=== PATIENT | female | born 1970 | race Caucasian/White ===

== ENCOUNTER 2024-06-03 12:59 | Emergency (ER) | payer OTHER, SELFPAY ==
[2024-06-03 13:35] VITALS: BP 143/71; PULSE 73; RESP 16; TEMP 36; O2SAT 93; BMI 31.6
--- NOTE | 2024-06-03 13:42 | ED_ITS ---
HPI - Abdominal Pain General Time Seen by Provider: 13:42 Date Seen: 06/03/24 Chief Complaint: Abdominal Pain Stated Complaint: abdominal pain, nausea Time Seen by Provider: 06/03/24 13:42 Source: patient and RN notes reviewed Mode of arrival: ambulatory Limitations: no limitations History of Present Illness HPI narrative: Claudine is a 53-year-old female with history of chronic pain, history of kidney stones, kidney cyst, spinal surgery who comes to the [facility] with for the 1st time for evaluation regarding abdominal pain and nausea and inability to eat for 5 days. Patient normally goes to the [facility] system. We will be requesting records. Claudine notes that on TuesdayMay 30 she had the onset of abdominal pain just the left of her belly button. This was associated with diarrhea that particular day. She also had nausea and was unable to eat. Over the past 5 days she continues to be unable to eat but has been able to take her daily oxycodone and that has stayed down. She has never actually had vomiting just persistent nausea. She is passing gas. She notes that initially it also was painful to urinate and she thought maybe she had a kidney infection. She did take azo for this. She notes that she also initially had a fever which finally broke this morning. She states that night her fever would go up quite a bit and then she would get really bad nightmares. Related Data Home Medications ?Medication ?Instructions ?Recorded ?Confirmed duloxetine 60 mg capsule,delayed 60 mg PO BID 06/03/24 06/03/24 release (Cymbalta) oxycodone 15 mg tablet 15 mg PO Q4H 06/03/24 06/03/24 oxycodone 15 mg tablet,crush 15 mg PO BID 06/03/24 06/03/24 resistant,extended release 12 hr (OxyContin) pregabalin 150 mg capsule (Lyrica) 150 mg PO BID 06/03/24 06/03/24 tinazitine 06/03/24 Previous Rx's ?Medication ?Instructions ?Recorded cefpodoxime 200 mg tablet 200 mg PO BID #14 tabs 06/03/24 Allergies Allergy/AdvReac Type Severity Reaction Status Date / Time latex Allergy Severe Verified 06/03/24 14:20 Review of Systems Status of ROS Reports: 10 or more systems reviewed and unremarkable except as noted in History and below Const Reports: fever, chills and fatigue ENMT Denies: nasal discharge Cardio Reports: palpitations; Denies: chest pain Resp Denies: cough GI Reports: abdominal pain, nausea and diarrhea; Denies: vomiting or blood in stool Reports: painful urination and urinary frequency Musculo Reports: back pain Integ/Breast Denies: rash Endo Reports: fatigue Exam Narrative: Exam Narrative: Alert and oriented. Very dramatic in retching. No vomitus. Eyes are clear. Face symmetrical. Speech is normal. Heart with a regular rate and rhythm. Lungs are clear bilaterally. Abdomen pending as patient suddenly had ?hot flash? and had to remove her blankets and was retching. Fortunately able to move all extremities during this event. Lower extremities without edema. Addendum-examination shows mild tenderness without rebound left lateral abdomen. No masses. Bowel sounds are present. No evidence of rash on back. Lidocaine patch in place. Const: Vital Signs, click to edit/add: Vital Signs - 24 hr 06/03/24 13:35 06/03/24 13:57 06/03/24 15:05 Temperature 96.8 F L Pulse Rate 68 83 Pulse Rate [Pulse Oximeter] 73 Respiratory Rate 16 Blood Pressure Blood Pressure [Le ft Upper Arm] 143/71 H Pulse Oximetry 93 95 96 Oxygen Delivery Me thod Room Air 06/03/24 15:06 06/03/24 16:39 Temperature Pulse Rate 76 Pulse Rate [Pulse Oximeter] 91 Respiratory Rate 20 16 Blood Pressure 154/70 H Blood Pressure [Le ft Upper Arm] 134/62 Pulse Oximetry 96 94 Oxygen Delivery Me thod Room Air Documenting provider has reviewed patient's vital signs: yes Course Course ED Course: Differential diagnosis includes but is not limited to gastroenteritis, pyelonephritis, bowel obstruction, diverticulitis. At this time will give Toradol 15 mg, Zofran 4 mg and 1 L of normal saline. Awaiting labs to include CBC, comprehensive panel, CRP, urinalysis. Given level of discomfort will also plan for abdominal CT with contrast. Reevaluation(s) Reevaluation #1: Patient returned from CT as she stated that she could not tolerate lying flat because of her nausea. She did receive Zofran 4 mg. Will give her Ativan 1 mg. Patient unable to tolerate CT and Ativan seems to markedly help her discomfort. Reevaluation #2: CT of the abdomen shows no evidence of diverticulitis, abscess, bowel obstruction. Does show cystitis. Currently awaiting urinalysis. Vital Signs Vital signs: Initial Vital Signs Temperature 96.8 F L 06/03/24 13:35 Temperature Source Temporal Artery Scan 06/03/24 13:35 Pulse Rate 73 06/03/24 13:35 Pulse Rhythm Regular 06/03/24 13:35 Pulse Strength 3+ Normal 06/03/24 13:35 Respiratory Rate 16 06/03/24 13:35 Blood Pressure 143/71 H 06/03/24 13:35 Blood Pressure Mean 95 06/03/24 13:35 Blood Pressure Position Sitting 06/03/24 13:35 Pulse Oximetry 93 06/03/24 13:35 Oxygen Delivery Method Room Air 06/03/24 13:35 Vital Signs Temperature 96.8 F L 06/03/24 13:35 Pulse Rate 73 06/03/24 13:35 Respiratory Rate 16 06/03/24 13:35 Blood Pressure 143/71 H 06/03/24 13:35 Pulse Oximetry 93 06/03/24 13:35 Oxygen Delivery Method Room Air 06/03/24 13:35 Temperature 96.8 F L 06/03/24 13:35 Pulse Rate 91 06/03/24 16:39 Respiratory Rate 16 06/03/24 16:39 Blood Pressure 134/62 06/03/24 16:39 Pulse Oximetry 94 06/03/24 16:39 Oxygen Delivery Method Room Air 06/03/24 16:39 Medications Administered Medications: Discontinued Medications Generic Name Dose Route Start Last Admin Trade Name Freq PRN Reason Stop Dose Admin Sodium Chloride 1,000 mls @ 1,000 mls/hr 06/03/24 13:57 06/03/24 16:03 0.9 % Sodium Chloride 1000 Ml IV 06/03/24 14:56 Infused .Q1H [facility] Infusion Ceftriaxone Sodium 1 gm/ 100 mls @ 200 mls/hr 06/03/24 16:28 06/03/24 17:15 Sodium Chloride IVPB 06/03/24 16:29 Infused ONCE ONE Infusion Sodium Chloride 1,000 mls @ 1,000 mls/hr 06/03/24 16:29 06/03/24 17:46 0.9 % Sodium Chloride 1000 Ml IV 06/03/24 17:28 Infused .Q1H [facility] Infusion Lorazepam 0.5 mg 06/03/24 14:37 06/03/24 14:43 Lorazepam 2 Mg/Ml Inj IVP 06/03/24 14:38 Not Given ONCE ONE Lorazepam 1 mg 06/03/24 14:42 06/03/24 14:44 Lorazepam 2 Mg/Ml Inj IVP 06/03/24 14:43 1 mg ONCE ONE Administration Ondansetron HCl 4 mg 06/03/24 13:56 06/03/24 14:29 Ondansetron 2 Mg/Ml Inj IVP 06/03/24 13:57 4 mg ONCE ONE Administration MDM - Abdominal Pain MDM Narrative Medical decision making narrative: 1. UTI-patient noted to be taking azo for the past 5 days given urinary symptoms. Urinalysis was positive. I suspect patient actually has early pyelonephritis even though CT results were reassuring given the location of her discomfort. Fortunately her white count and CRP are within normal limits as well as her lactate. At this time no signs of sepsis. Patient was given 1 g IV Rocephin while in the ED and will be continued on cefpoxidime 200 mg p.o. b.i.d. x7 days. This can be picked up at the pharmacy tomorrow. Will await the urine culture. Decided against the use of Cipro as patient is also requesting Zofran prescription and I would like to avoid to potentially QT prolonging compounds together. Of course, if she has resistant organism will need to re- evaluate that. 2. Abdominal pain-likely from early pyelonephritis. No evidence of abscess formation on CT. Note some biliary ductal dilatation on CT but patient has no right upper quadrant tenderness and has a history of cholecystectomy. Laboratory values including bilirubin and LFTs reassuring. 3. Chronic pain-does have oxycodone as needed for discomfort. 4. Dehydration with ketonuria-patient states she has not had anything to eat or drink in 5 days but was able to keep oxycodone down. No worries about withdrawal today. 2 L of normal saline given and patient does take p.o. while here without difficulty. Zofran 4 mg ODT p.o. q.8 hours p.r.n. 10. Given via [employer]. Recommend frequent small meals and staying well hydrated. 5. Disposition-home at this time. patient states she is feeling much better. Return/seek medical attention for worsening symptoms and as needed. Dictation done with voice recognition, and as a result, wrong word or [id number] substitutions may have occurred.? There may be errors in the script that have gone undetected.? Please consider this when interpreting information found in this chart. Medical Records Attestation: I reviewed the patient's medical records. Lab Data Attestation: I reviewed the patient's lab results. Labs: Lab Results 06/03/24 06/03/24 Range/Units 14:05 16:04 WBC 9.31 (4.50-11.00) K/uL RBC 5.00 (4.00-5.20) m/uL Hgb 14.7 (12.0-16.0) gm/dL Hct 43.6 (33.0-51.0) % MCV 87 (80-100) fL MCH 29 (26-34) pg MCHC 34 (32-36) gm/dL RDW Coeff of Сергей 13.2 (11.5-15.5) % Plt Count 219 (140-440) K/uL Neut % (Auto) 75.1 H (42.0-72.0) % Lymph % (Auto) 17.7 L (20-44) % [place] % (Auto) 6.0 (0.0-11.0) % Eos % (Auto) 0.5 (0.0-7.0) % Baso % (Auto) 0.6 (0.0-3.0) % Neut # (Auto) 7.00 (1.7-7.0) K/uL Lymph # (Auto) 1.60 (0.90-2.90) K/uL [place] # (Auto) 0.60 (0.00-0.90) K/UL Eos # (Auto) 0.05 (0.00-0.50) K/uL Baso # (Auto) 0.06 (0.00-0.30) K/uL Abs Immat Gran (auto) 0.01 (0.00-0.30) K/uL Imm/Tot Granulo (auto) 0.1 % Sodium 133 L (135-149) mmol/L Potassium 4.0 (3.6-5.1) mmol/L Chloride 102 (96-114) mmol/L Carbon Dioxide 19 L (20-32) mmol/L Anion Gap 12 (7-15) mEq/L BUN 24 (7-30) mg/dL Creatinine 0.8 (0.5-1.5) mg/dL Estimated Creat Clear 85.92 Estimated GFR 87 ml/min Glucose 89 (60-115) mg/dL Lactate 1.0 (0.5-1.9) mmol/L Calcium 9.7 (8.4-10.6) mg/dL Total Bilirubin 1.2 (0.1-1.5) mg/dL AST 37 H (12-35) U/L ALT 31 (4-35) U/L Alkaline Phosphatase 113 (40-150) U/L C-Reactive Protein 0.6 (0.5-1.0) mg/dL Total Protein 7.4 (6.0-8.3) g/dL Albumin 4.5 (3.3-5.0) g/dL Urine Color Yellow (Yellow) Urine Appearance Clear (Clear) Urine pH 5.5 (5.0-8.5) Ur Specific [place] 1.015 (1.000-1.030) Urine Protein Negative (Negative) Urine Glucose (UA) Negative (Negative) Urine Ketones 4+ A (Negative) Urine Blood Trace-intact A (Negative) Urine Nitrite Positive A (Negative) Urine Bilirubin 1+ A (Negative) Urine Urobilinogen 0.2 (0.2-1.0) Ur Leukocyte Esterase Negative (Negative) Urine RBC 2-5 A (0-2) Urine WBC 5-10 A (0-5) Ur Squamous Epith Cells Few (None-Few) Urine Bacteria Few A (None) Imaging Data CT scan - abdomen: Attestation: I have reviewed the pertinent imaging results. Radiologist's impression: Lung bases: Normal. Liver: Diffuse hepatic steatosis. No focal liver lesions seen. Patent hepatic vasculature. Gallbladder and bile ducts: Cholecystectomy. There is mild left more than right central intrahepatic biliary ductal dilatation. The common hepatic duct measures 1.2 centimeters at the hepatic hilum. The distal common bile duct measures about 0.9 centimeters. No calcified internal filling defect or extrinsic compression. Pancreatico biliary junction anatomy appears normal (series 4, image 73). Pancreas: Normal pancreas and pancreatic duct. Spleen: Small splenule. Normal spleen size and enhancement. Adrenal glands: Normal. Kidneys: Normal renal size and position. There is a 2.3 centimeter anteromedial left upper pole renal cyst. There is a smaller 0.7 centimeter left renal cyst. No solid renal mass. Contrast is already excreted into both collecting systems. No large calculi seen. No urinary tract dilation. Urinary bladder: Circumferential bladder wall thickening and hyperenhancement with mild adjacent inflammatory stranding. Pelvis: No cyst or mass. Vessels: Minimal atherosclerotic plaques. No aortic aneurysm. Normal mesenteric arteries and veins. Bowel: No dilated or inflamed bowel. Normal appendix. Moderate stool burden. Lymph nodes: No adenopathy. Peritoneum: No ascites or free air. Abdominal wall: Healed midline incision. No bowel containing hernia. Bones: Lower lumbar laminectomy. Lumbopelvic spinal fusion with multilevel pedicle screws and paired vertical rods. Anterior fusion at L4-5 and L5-S1. There is a spinal cord stimulator with the battery pack in the left buttock soft tissues. The leads enter the spine at the thoracolumbar junction and extend up into the lower thoracic spine with the electrodes at the T8 through T10 levels. There is some very mild wedging of T11 and T12 which may be physiologic. No findings of an acute fracture. No focal worrisome bone lesions. IMPRESSION: 1. Cystitis of the urinary bladder. No findings of upper tract infection or pyelonephritis. 2. Biliary ductal dilatation may be reservoir effect after cholecystectomy, p articularly in the absence of symptoms of biliary colic or obstruction/jaundice. Discharge Plan Discharge Clinical Impression: UTI (urinary tract infection) Patient Disposition: Home, Self-Care Condition: Improved Additional Instructions: Antibiotic for UTI sent to your pharmacy to be picked up tomorrow morning. He will be on that medication for 7 days. Please seek medical attention if you are not improving. If the culture comes back and the antibiotic is not appropriate we will call you in change it. Zofran as needed for nausea-this is in our [employer] meds machine. Push fluids including Pedialyte, Gatorade. Return as needed. Prescriptions: New cefpodoxime 200 mg tablet 200 mg PO BID Qty: 14 0RF Rx Instructions: must administer with a meal/food No Action oxycodone 15 mg tablet 15 mg PO Q4H oxycodone [OxyContin] 15 mg tablet,oral only,ext.rel.12 hr 15 mg PO BID pregabalin [Lyrica] 150 mg capsule 150 mg PO BID duloxetine [Cymbalta] 60 mg capsule,delayed release(DR/EC) 60 mg PO BID tinazitine Follow Up/Referrals: Provider,Not a Local [Primary Care Provider] - Stand Alone Forms: [employer] Info Instructions
--- NOTE | 2024-06-03 13:56 | CRLHL7_ITS ---
For Patients: As a result of the Century Cures Act, medical imaging exams and procedure reports are released immediately into your electronic medical record. You may view this report before your referring provider. If you have questions, please contact your health care provider. INDICATION: Pain with vomiting. COMPARISON: None. TECHNIQUE: CT of the abdomen and pelvis with intravenous contrast. Multiplanar axial, coronal, and sagittal reformats were reconstructed. Contrast: 108 mL Isovue 370. FINDINGS: Lung bases: Normal. Liver: Diffuse hepatic steatosis. No focal liver lesions seen. Patent hepatic vasculature. Gallbladder and bile ducts: Cholecystectomy. There is mild left more than right central intrahepatic biliary ductal dilatation. The common hepatic duct measures 1.2 centimeters at the hepatic hilum. The distal common bile duct measures about 0.9 centimeters. No calcified internal filling defect or extrinsic compression. Pancreatico biliary junction anatomy appears normal (series 4, image 73). Pancreas: Normal pancreas and pancreatic duct. Spleen: Small splenule. Normal spleen size and enhancement. Adrenal glands: Normal. Kidneys: Normal renal size and position. There is a 2.3 centimeter anteromedial left upper pole renal cyst. There is a smaller 0.7 centimeter left renal cyst. No solid renal mass. Contrast is already excreted into both collecting systems. No large calculi seen. No urinary tract dilation. Urinary bladder: Circumferential bladder wall thickening and hyperenhancement with mild adjacent inflammatory stranding. Pelvis: No cyst or mass. Vessels: Minimal atherosclerotic plaques. No aortic aneurysm. Normal mesenteric arteries and veins. Bowel: No dilated or inflamed bowel. Normal appendix. Moderate stool burden. Lymph nodes: No adenopathy. Peritoneum: No ascites or free air. Abdominal wall: Healed midline incision. No bowel containing hernia. Bones: Lower lumbar laminectomy. Lumbopelvic spinal fusion with multilevel pedicle screws and paired vertical rods. Anterior fusion at L4-5 and L5-S1. There is a spinal cord stimulator with the battery pack in the left buttock soft tissues. The leads enter the spine at the thoracolumbar junction and extend up into the lower thoracic spine with the electrodes at the T8 through T10 levels. There is some very mild wedging of T11 and T12 which may be physiologic. No findings of an acute fracture. No focal worrisome bone lesions. IMPRESSION: 1. Cystitis of the urinary bladder. No findings of upper tract infection or pyelonephritis. 2. Biliary ductal dilatation may be reservoir effect after cholecystectomy, particularly in the absence of symptoms of biliary colic or obstruction/jaundice. Please note that all CT scans at this facility use dose modulation, iterative reconstruction, and/or weight-based dosing when appropriate to reduce radiation dose to as low as reasonably achievable. Dictated by May Giron MD @ 06/03/2024 3:27:05 PM (Electronically Signed)
[2024-06-03 13:57] VITALS: PULSE 68; O2SAT 95
[2024-06-03 14:15] LABS: Basophils Absolute Auto 0.06 K/uL (0.00-0.30); Basophils Percent Auto 0.6 % (0.0-3.0); Eosinophils Absolute Auto 0.05 K/uL (0.00-0.50); Eosinophils Percent Auto 0.5 % (0.0-7.0); Hematocrit 43.6 % (33.0-51.0); Hemoglobin* 14.7 gm/dL (12.0-16.0); Immature Granulocytes Abs Auto 0.01 K/uL (0.00-0.30); Immature Granulocytes Pct Auto 0.1 %; Lymphocytes Percent Auto 17.7 % (20-44); Mean Corpuscular HGB Conc 34 gm/dL (32-36); Mean Corpuscular Hemoglobin 29 pg (26-34); Mean Corpuscular Volume 87 fL (80-100); Neutrophils Percent Auto 75.1 % (42.0-72.0); Platelet Count* 219 K/uL (140-440); RDW Coefficient of Variation % 13.2 % (11.5-15.5); White Blood Count* 9.31 K/uL (4.50-11.00)
[2024-06-03 14:16] LABS: Slide Review Reflex No
--- OUTSIDE RECORDS SUMMARY | 2024-06-03 14:18 | XMS_ITS | Clinical Summary ---
Author Organization [facility] Address [address] [place] [address]. [place] [address] Care Team Providers Care Employment Officer Name Role Phone No Ref-Primary, Physician Primary Care Provider Frida Mercado PA-C Unavailable Allergies Active Allergy Reactions Criticality Noted Date Comments Citronella Oil Shortness Of Breath High 10/07/2016 Escitalopram 11/28/2015 Other reaction(s): *Unknown Sexual side effects Hydrocodone Nausea and Vomiting 01/12/2016 Main ingredient in Vicodin - tolerates plain Acetaminophen Latex Rash Low 02/25/2012 Latex Hives,Rash Low 05/20/2015 Added based on information entered during log entry, please review and add reactions, type, and severity as needed Hydrocodone-Acetaminop hen 09/24/2013 nausea Medications multivitamin, therapeutic with minerals (MULTI-VITAMIN) TABS Take 1 tablet by mouth daily Active albuterol (VENTOLIN HFA) 108 (90 BASE) MCG/ACT Inhaler INHALE 1 TO 2 PUFFS PO Q 6 H PRN 7 Active aspirin-acetamino phen-caffeine (EXCEDRIN MIGRAINE) 250-250-65 MG tablet Take 1 tablet by mouth every 8 hours as needed 6 Active diclofenac (VOLTAREN) 1 % topical gel Apply topically daily as needed 9 Active SUMAtriptan (IMITREX) 100 MG tabletIndications :Migraine with aura and without status migrainosus, not intractable Take 1 tablet (100 mg) by mouth at onset of headache for migraine 27 tablet 9 Active hydrOXYzine (ATARAX) 10 MG tablet Take 1 tablet (10 mg) by mouth 2 times daily as needed for itching 9 Active DULoxetine HCl 30 MG CSDR Take 30 mg by mouth 2 times daily 1 capsule 9 Active tiZANidine (ZANAFLEX) 4 MG tablet Take 1 tablet (4 mg) by mouth 3 times daily 1 tablet 9 Active pregabalin (LYRICA) 150 MG capsule Take 1 capsule (150 mg) by mouth 2 times daily 1 capsule 9 Active SENNA PLUS 8.6-50 MG tablet Take 2 tablets by mouth daily as needed 0 Active ibuprofen (ADVIL/MOTRIN) 200 MG tabletIndications :Calculus of gallbladder without cholecystitis without obstruction Take 3 tablets (600 mg) by mouth every 6 hours as needed for pain 1 Active acetaminophen (TYLENOL) 500 MG tabletIndications :Calculus of gallbladder without cholecystitis without obstruction Take 2 tablets (1,000 mg) by mouth every 6 hours as needed for pain 1 Active naloxone (NARCAN) 4 MG/0.1ML nasal sprayIndications: Gallstones Ovid 1 spray (4 mg) into one nostril alternating nostrils daily as needed 0.2 mL 1 Active oxyCODONE (ROXICODONE) 5 MG tabletIndications :Acute post-operative pain Take 1 tablet (5 mg) by mouth every 4 hours as needed for pain 36 tablet 1 Active rosuvastatin (CRESTOR) 5 MG tabletIndications :Family history of ischemic heart disease,Chest pain, unspecified type,Palpitations ,SOB (shortness of breath) Take 1 tablet (5 mg) by mouth daily 90 tablet 3 1 Active dicyclomine (BENTYL) 20 MG tablet Take 1 tablet (20 mg) by mouth every 6 hours 24 tablet 4 Active omeprazole (PRILOSEC) [address] capsule Take 1 capsule (40 mg) by mouth daily 14 capsule 4 Active alum & mag hydroxide-simethi cone (MAALOX ES) 400-400-40 MG/5ML SUSP suspension Take 30 mLs by mouth every 6 hours as needed for indigestion or heartburn 355 mL 4 Active Active Problems Problem Noted Date Diagnosed Date Cervical post-laminectomy syndrome 07/22/2020 Degeneration of lumbar intervertebral disc 07/22 Ventral hernia without obstruction or gangrene 0 06/25/2020 Overview (06/25/2020): Added automatically from request for surgery [id number] Umbilical hernia without obstruction and without gangrene 06/25/2020 Overview (06/25/2020): Added automatically from request for surgery [id number] Gallstones 05/30/2020 Overview (05/30/2020): Added automatically from request for surgery [id number] Fibromyalgia 06/29/2019 Calculus of gallbladder with out cholecystitis without obstruction 06/29/2019 History of gastric ulcer 02/10/2019 History of Helicobacter pylori infection 019 Gastric ulcer 04/24/2018 Overview (05/02/2018): recommended repeat in 2 months Abnormal Pap smear of cervix 03/25/2018 Overview (07/05/2018): She reports cryosurgery, perhaps ~2002 2009 NIL pap (in Care Everywhere) 2018 NIL pap (in Care Everywhere) 2019 NIL pap, neg HR HPV. 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 CARDIOVASCULAR SCREENING; LDL GOAL LESS THAN 160 10/26/2017 Constipation, unspecified constipation type 10/15 Anxiety and depression 01/14/2017 Hypermobility of joint 01/14/2017 Urinary retention 01/14/2017 Obesity due to excess calories 10/12/2016 Opioid dependence, continuous 10/12/2016 Lumbar radiculopathy 10/07/2016 Major depressive disorder, recurrent episode, mo derate 09/19/2016 Anxiety 09/19/2016 Essential hypertension, benign 09/10/2016 Chronic bilateral low back pain without sciatica 09/10/2016 Chronic pain syndrome 09/10/2016 Pain medication agreement 07/13/2016 Overview (07/22/2020): Have agreed to 240 Tramadol/month with [employer]. Pt is checking to see if her insurance will pay for Toxassure before she signs agreement. Had gotten oxycodone from her orthopedist for recent neck surgery. Elevated factor VIII level 06/07/2016 High plasma histamine 06/07/2016 Severe episode of recurrent major depressive disorder, without psychotic features 09/05/2015 Factor V Leiden Resolved Problems Problem Noted Date Diagnosed Date Resolved Date Left ovarian cyst 07/02/2014 10/26/2017 Colitis 01/12/2014 07/02/2014 Back pain, acute 12/05/2013 07/02/2014 Dermoid cyst 09/22/2013 07/02/2014 Missed 02/25/2012 07/02/2014 Immunizations Name Administration Dates Next Due Rhogam 02/25/2012 Tdap (Adult) Unspecified Formulation 04/28/2017, 07/13/2007 Family History Medical History Relation Comments No Known Problems Brother 1 No Known Problems Brother 2 Coronary Artery Disease Father Other - See Comments Father carotid art bev dissection Ulcers Father Cancer - colorectal Maternal Grandfather Cerebrovascular Disease Mother Coronary Artery Disease Mother Gallbladder Disease Mother Hypertension Mother Pulmonary Embolism Mother Thyroid Disease Mother Cancer - colorectal Paternal Grandfather Osteoarthritis Sister 1 No Known Problems Sister 2 Relation Status Comments Brother 1 Alive Brother 2 Alive Father Alive Maternal Grandfather Mother Alive Paternal Grandfather Sister 1 Alive Sister 2 Alive Social History Tobacco Use Types Packs/Day Years Used Date Smoking Tobacco: Former Cigarettes 0.3 30 1 981 - 2010 Smokeless Tobacco: Never Quit: 03/24/2007 Tobacco Cessation:Counseling Given: Yes Comments:hardly smoked Alcohol Use Standard Drinks/Week Comments No 0 (1 standard drink = 0.6 oz pur e alcohol) PHQ-2 Answer Date Recorded PHQ-2 Score 6 05/27/2020 Adolescent Education Answer Date Record ed Getting School Help Needed Not on file 11/28 Comments No Sex and Gender Information Value Date Recorded Sex Assigned at Not on file Legal Sex Female 3:34 AM INSTRUCTOR OF EDUCATION Gender Identity Not on file Sexual Orientation Not on file Last Filed Vital Signs Vital Sign Reading Time Taken Comments Blood Pressure 153/80 11/03/2023 1:29 AM CDT Pulse 81 11/03/2023 2:26 AM CDT Temperature 36.7 C (98.1 F) 11/02/2023 10:16 PM CDT Respiratory Rate 13 11/03/2023 2:09 AM CDT Oxygen Saturation 94% 11/03/2023 2:26 AM CDT Inhaled Oxygen Concentration - - Weight 92.3 kg (203 lb 8 oz) 11/02/2023 10:16 PM CDT Height 177.8 cm (5' 10) 11/02/2023 10:16 PM CDT Body Mass Index 29.2 11/02/2023 10:16 PM CDT Plan of Treatment Health Maintenance Due Date Last Done Comments ANNUAL REVIEW OF HM ORDERS 1968 CT COLONOGRAPHY 1968 FLEX SIG 1968 sDNA (Cologuard) 1968 HIV SCREENING 11/22/1983 HEPATITIS C SCREENING 1986 HEPATITIS A IMMUNIZATION (1 of 2 - Risk 2-dose series) 11/22/1987 HEPATITIS B IMMUNIZATION (1 of 3 - 19+ 3-dose series) 11/22/1987 FIT 01/12/2015 01/12/2014 Pneumococcal Vaccine: 50+ Years (1 of 1 - PCV) 2018 ZOSTER IMMUNIZATION (1 of 2) 2018 YEARLY PREVENTIVE VISIT 03/24/2019 03/24/2018 PHQ-9 11/26/2020 05/27/2020, 05/06/2019, 02/09/2019, Additional history exists LIPID 12/30/2021 12/30/2020, /2 04/2020, 04/07/2018 COLONOSCOPY 04/25/2023 04/24/2018, 04/24/2018 COLORECTAL CANCER SCREENING 04/25/2023 HPV TEST 06/28/2023 06/27/2018 PAP 06/28/2023 06/27/2018, 02/15, 03/14/2017 MAMMO SCREENING 09/03/2023 09/02/2022, 08/15, 10/27/2020, Additional history exists COVID-19 Vaccine ( - season) 2023 INFLUENZA VACCINE (#1) 2023 BMP 11/01/2024 11/02/2023, 06/15, 05/27/2020, Additional history exists LUNG CANCER SCREENING 11/02/2024 11/03/2023, 024 ADVANCE CARE PLANNING 07/02/2025 07/02/2020, 021 DIABETES SCREENING 11/01/2026 11/02/2023, 0 07/06/2023, 05/27/2020, Additional history exists DTAP/TDAP/TD IMMUNIZATION (3 - Td or Tdap) 04/29/2027 04/28/2017, 07/13/2007 DEPRESSION ACTION PLAN Completed 10/20/2017, 2017 HPV IMMUNIZATION Aged Out No longer e ligible based on patient's age to complete this topic MENINGITIS IMMUNIZATION Aged Out No l onger eligible based on patient's age to complete this topic Medical Devices Implanted Type Area Legislative Director Device Identifier Shelf Expiration Date Model / Serial / Lot Bone Void Filler Stimulan 5cc Rapid Cure - 620-005 - Sna Implanted:Qty : 1 on 10/07/2016 Bone/Tissue Synthetic N/A: Spine Lumbar BI[employer]ES 04/14/2019 [id number] / NA / [id number]/02-[id number]/ [id number] Description:Posterior Graft Bone Infuse Medium [id number] - Sna Implanted:Qty : 1 on 10/07/2016 Bone/Tissue /Biologic N/A: Spine Lumbar [employer] 04/13/2018 [id number] / NA / [id number] Description:Anterior side Bone Chips Cancellous 30cc 1-8mm - [id number] - [id number] Implanted:Qty : 1 on 10/07/2016 Bone/Tissue /Biologic N/A: Spine Lumbar WICHO SP 05/23/2021 [id number] / [id number] / Description:Anterior side Bone Putty Dbx 5cc [id number] - [id number] Implanted:Qty : 1 on 10/07/2016 Bone/Tissue /Biologic N/A: Spine Lumbar SYNTHES 04/12/2018 [id number] / [id number] / Description:Anterior side Bone Chips Cancellous 30cc 1-4mm - [id number] - [id number] Implanted:Qty : 1 on 10/07/2016 Bone/Tissue /Biologic N/A: Spine Lumbar WICHO SP 05/27/2021 [id number] / [id number] / NA Mesh Ventralex Hernia 2.5 [place] Med W/Strap [id number] - [id number] Implanted:Qty : 1 on 07/10/2020 by Cassie Larsen MD at [facility] Mesh N/A: Umbilical CR BARD INC-DAVOL 02/10/2022 [id number] / / [id number] Screw Emily 3 Pa 7.5x40mm - [id number] - Sna Implanted:Qty : 2 on 10/07/2016 Metallic Hardware/An chor N/A: Spine Lumbar WICHO SP [id number] / NA / NA Description:posterior Screw Poly Ilios & Revision 8.5x60mm - [id number] - Sna Implanted:Qty : 2 on 10/07/2016 Metallic Hardware/An chor N/A: Spine Lumbar WICHO SP [id number] / NA / NA Description:posterior Zachariah Emily 3 Radius 2i418le - [id number] - Sna Implanted:Qty : 2 on 10/07/2016 Metallic Hardware/An chor N/A: Spine Lumbar WICHO SP [id number] / NA / NA Description:Posterior Wastewater Engineer Multifire Medium [id number] - Sna Implanted:Qty : 1 on 10/07/2016 Metallic Hardware/An chor N/A: Abdomen [employer]-ETHICON 07/14/2021 [id number] / NA / [id number] Ligaclip Large Aesculap [id number] - [id number] Implanted:Qty : 1 on 10/07/2016 Metallic Hardware/An chor N/A: Abdomen [employer] 11/13/2020 72315-7 / / [id number] Plate Locking [id number] - Sna Implanted:Qty : 2 on 10/07/2016 Metallic Hardware/An chor N/A: Spine Lumbar WICHO SP [id number] / NA / NA Description:Anterior Spacer Vertebral [id number] 12 Deg - [id number] - Sna Implanted:Qty : 2 on 10/07/2016 Metallic Hardware/An chor N/A: Spine Lumbar WICHO SP [id number] / NA / NA Description:Anterior Screw Bone 6x25mm - [id number] - Sna Implanted:Qty : 6 on 10/07/2016 Metallic Hardware/An chor N/A: Spine Lumbar WICHO SP [id number] / NA / NA Description:Anterior Oumar Zachariah Emily 3 - [id number] - Sna Implanted:Qty : 7 on 10/07/2016 Metallic Hardware/An chor N/A: Spine Lumbar WICHO SP [id number] / NA / NA Description:Posterior Screw Emily 3 Pa 6.5x45mm - [id number] - Sna Implanted:Qty : 3 on 10/07/2016 Metallic Hardware/An chor N/A: Spine Lumbar WICHO SP [id number] / NA / NA Description:posterior Disc Cervical Mobi-C [id number] - Sna Implanted:Qty : 1 on 01/12/2016 Total Joint Component/I nsert N/A: Spine Cervical LDR SPINE 12/16/2019 [id number] / NA / [id number] Description:Anterior Procedures Procedure Name Priority Date/Time Associated Diagnosis Comments CT CHEST PE ABDOMEN PELVIS W CONTRAST STAT 11/03/2023 1:24 AM CDT BASIC METABOLIC PANEL STAT 11/02/2023 10:31 PM CDT LIPID PROFILE Routine 12/30/2020 10:15 AM INSTRUCTOR OF EDUCATION Family history of ischemic heart disease Chest pain, unspecified type Palpitations SOB (shortness of breath) MA SCREENING BILATERAL W/ JUVE Routine 10/27/2020 1:37 PM CDT Encounter for screening mammogram for breast cancer PAP IMAGED THIN LAYER SCREEN Routine 06/27/2018 3:17 PM CDT Intramural leiomyoma of uterus HPV HIGH RISK TYPES DNA CERVICAL Routine 06/27/2018 3:05 PM CDT Intramural leiomyoma of uterus COLONOSCOPY - HIM SCAN 04/24/2018 12:00 AM CDT PHQ-9 DEPRESSION SCREENING ORDER Routine 12/27/2017 OCCULT BLOOD STOOL STAT 01/12/2014 8: 30 PM INSTRUCTOR OF EDUCATION Colitis from Last 3 Months or Most Recently Relevant to Health Maintenance Results * CT Chest (PE) Abdomen Pelvis w Contrast (11/03/2023 1:24 AM CDT) Anatomical Region Laterality Modality Chest, SUBRAD CT BODY, UMP CT CHEST, RAD CT Computed Tomography 11/03/2023 1:24 AM CDT Impressions 11/03/2023 1:48 AM CDT IMPRESSION: 1. No evidence of pulmonary embolism. 2. Mild diffuse urinary bladder wall thickening, could be due to underdistention versus chronic cystitis. 3. Moderate amount of stool in the colon, nonspecific, can be seen with constipation. 4. Fibroid uterus. Narrative 11/03/2023 1:48 AM CDT EXAM: CT CHEST PE ABDOMEN PELVIS W CONTRAST LOCATION: [facility] DATE: 11/03/2023 INDICATION: Chest pain, abdominal pain. COMPARISON: CT chest, abdomen and pelvis on 07/06/2023. TECHNIQUE: CT chest pulmonary angiogram and routine CT abdomen pelvis with IV contrast. Arterial phase through the chest and venous phase through the abdomen and pelvis. Multiplanar reformats and MIP reconstructions were performed. Dose reduction techniques were used. CONTRAST: 100 mL Isovue 370. FINDINGS: ANGIOGRAM CHEST: Pulmonary arteries are normal caliber and negative for pulmonary emboli. Thoracic aorta is negative for dissection. No CT evidence of right heart strain. MEDIASTINUM/AXILLAE: No cardiomegaly or significant pericardial effusion. No significant mediastinal, hilar or axillary lymphadenopathy. LUNGS AND PLEURA: No pleural effusion or pneumothorax. Mild basilar pulmonary opacities, likely atelectasis. CORONARY ARTERY CALCIFICATION: None. ABDOMEN/PELVIS: HEPATOBILIARY: No suspicious focal hepatic lesion. The gallbladder is surgically absent. Diffuse intrahepatic and extrahepatic biliary dilatation, likely reservoir effect post cholecystectomy. PANCREAS: No main pancreatic ductal dilatation or definite solid pancreatic mass. SPLEEN: No splenomegaly. Splenule along the inferior aspect of the spleen. ADRENAL GLANDS: No adrenal nodules. KIDNEYS/BLADDER: No radiodense kidney/ureteral stones or hydronephrosis in either kidney. 2 cm cyst at the upper pole of the left kidney. Few subcentimeter hypodense foci in the kidneys, too small to characterize. Mild diffuse urinary bladder wall thickening, could be due to underdistention versus chronic cystitis. BOWEL: No abnormally dilated bowel loops. The appendix is visualized and appears normal. Moderate amount of stool in the colon. PERITONEUM: No evidence of free fluid in the abdomen and pelvis. No free peritoneal or portal venous gas. PELVIC ORGANS: Fibroid uterus. VASCULATURE: Unremarkable. LYMPH NODES: Unremarkable. MUSCULOSKELETAL: Postsurgical changes of L4-S1 spinal fusion. There is left gluteal implantable spinal stimulator device. Procedure Note Maile Claros MD - 11/03/2023 EXAM: CT CHEST PE ABDOMEN PELVIS W CONTRAST LOCATION: [facility] DATE: 11/03/2023 INDICATION: Chest pain, abdominal pain. COMPARISON: CT chest, abdomen and pelvis on 07/06/2023. TECHNIQUE: CT chest pulmonary angiogram and routine CT abdomen pelvis withIV contrast. Arterial phase through the chest and venous phase through theabdomen and pelvis. Multiplanar reformats and MIP reconstructions wereperformed. Dose reduction techniques were used. CONTRAST: 100 mL Isovue 370. FINDINGS: ANGIOGRAM CHEST: Pulmonary arteries are normal caliber and negative forpulmonary emboli. Thoracic aorta is negative for dissection. No CTevidence of right heart strain. MEDIASTINUM/AXILLAE: No cardiomegaly or significant pericardial effusion.No significant mediastinal, hilar or axillary lymphadenopathy. LUNGS AND PLEURA: No pleural effusion or pneumothorax. Mild basilarpulmonary opacities, likely atelectasis. CORONARY ARTERY CALCIFICATION: None. ABDOMEN/PELVIS: HEPATOBILIARY: No suspicious focal hepatic lesion. The gallbladder issurgically absent. Diffuse intrahepatic and extrahepatic biliarydilatation, likely reservoir effect post cholecystectomy. PANCREAS: No main pancreatic ductal dilatation or definite solidpancreatic mass. SPLEEN: No splenomegaly. Splenule along the inferior aspect of thespleen. ADRENAL GLANDS: No adrenal nodules. KIDNEYS/BLADDER: No radiodense kidney/ureteral stones or hydronephrosis ineither kidney. 2 cm cyst at the upper pole of the left kidney. Fewsubcentimeter hypodense foci in the kidneys, too small to characterize.Mild diffuse urinary bladder wall thickening, could be due to underdistention versus chronic cystitis. BOWEL: No abnormally dilated bowel loops. The appendix is visualized andappears normal. Moderate amount of stool in the colon. PERITONEUM: No evidence of free fluid in the abdomen and pelvis. No freeperitoneal or portal venous gas. PELVIC ORGANS: Fibroid uterus. VASCULATURE: Unremarkable. LYMPH NODES: Unremarkable. MUSCULOSKELETAL: Postsurgical changes of L4-S1 spinal fusion. There isleft gluteal implantable spinal stimulator device. IMPRESSION: 1. No evidence of pulmonary embolism. 2. Mild diffuse urinary bladder wall thickening, could be due tounderdistention versus chronic cystitis. 3. Moderate amount of stool in the colon, nonspecific, can be seen withconstipation. 4. Fibroid uterus. Sandra Mayfield DO IMG CT ORDERABLES Final Re sult * (ABNORMAL) Basic metabolic panel (11/02/2023 10:31 PM CDT) Sodium 135 135 - 145 mmol/L 11/02/2023 11:21 PM CDT [facility] Potassium 3.8 3.4 - 5.3 mmol/L 11/02/2023 11:21 PM CDT [facility] Chloride 101 98 - 107 mmol/L 11/02/2023 11:21 PM CDT [facility] Carbon Dioxide (CO2) 22 22 - 29 mmol/L 11/02/2023 11:21 PM CDT [facility] Anion Gap 12 7 - 15 mmol/L 11/02/2023 11:21 PM CDT [facility] Urea Nitrogen 22.5(H) 6.0 - 20.0 mg/dL 11/02/2023 11:21 PM CDT [facility] Creatinine 0.96(H) 0.51 - 0.95 mg/dL 11/02/2023 11:21 PM CDT [facility] GFR Estimate 70 >60 mL/min/1.7 3m2 11/02/2023 11:21 PM CDT [facility] Comment:eGFR calculated usin g 2020 CKD-EPI equation. Calcium 9.7 8.8 - 10.4 mg/dL 11/02/2023 11:21 PM CDT [facility] Comment:Reference intervals for this test were updated on 08/30/2023 to reflect our healthy population more accurately. There may be differences in the flagging of prior results with similar values performed with this method. Those prior results can be interpreted in the context of the updated reference intervals. Glucose 129(H) 70 - 99 mg/dL 11/02/2023 11:21 PM CDT [facility] Blood BLOOD SPECIMEN / Unknown Venipuncture / Unknown 11/02/2023 10:31 PM CDT 11/02/2023 10:56 PM CDT Sandra Mayfield DO LAB - BLOOD ORDERABLES Fin al Result [facility] [address] Lab (1st floor, no room number) [place] [address], [facility] * (ABNORMAL) Lipid Profile (12/30/2020 10:15 AM INSTRUCTOR OF EDUCATION) [facility] Cholesterol 152 <200 mg/dL 12/30/2020 11:43 AM INSTRUCTOR OF EDUCATION LABORATORY Triglycerides 132 <150 mg/dL 12/30/2020 11:43 AM INSTRUCTOR OF EDUCATION LABORATORY Direct Measure HDL 44(L) >=50 mg/dL 2020 11:43 AM INSTRUCTOR OF EDUCATION LABORATORY LDL Cholesterol Calculated 82 <=100 mg/dL 12/30/2020 11:43 AM INSTRUCTOR OF EDUCATION LABORATORY Non HDL Cholesterol 108 <130 mg/dL 12/30/2020 11:43 AM INSTRUCTOR OF EDUCATION LABORATORY Patient Fasting > 8hrs? Yes 12/30/2020 11:43 AM INSTRUCTOR OF EDUCATION [facility] Blood STRUCTURE OF RIGHT UPPER LIMB / Unknown Venipuncture / Unknown 12/30/2020 10:15 AM INSTRUCTOR OF EDUCATION 12/30/2020 10:15 AM INSTRUCTOR OF EDUCATION Narrative LABORATORY - 12/30/2020 11:43 AM INSTRUCTOR OF EDUCATION Cholesterol Desirable: <200 mg/dL Triglycerides Normal: Less than 150 mg/dL Borderline High: 150-199 mg/dL High: 200-499 mg/dL Very High: Greater than or equal to 500 mg/dL Direct Measure HDL Female: Greater than or equal to 50 mg/dL Male: Greater than or equal to 40 mg/dL LDL Cholesterol Desirable: <100mg/dL Above Desirable: 100-129 mg/dL Borderline High: 130-159 mg/dL High: 160-189 mg/dL Very High: >= 190 mg/dL Non HDL Cholesterol Desirable: 130 mg/dL Above Desirable: 130-159 mg/dL Borderline High: 160-189 mg/dL High: 190-219 mg/dL Very High: Greater than or equal to 220 mg/dL Israel Perez MD LAB - BLOOD ORDERABLES Final Res ult LABORATORY [facility] [address] 1st floor, [address] [place] [id number], [facility] [phone] [facility] [address] [place] [address] * MA Screen Bilateral w/Juve (10/27/2020 1:37 PM CDT) Anatomical Region Laterality Modality Breast Bilateral Mammography Narrative 10/30/2020 10:30 AM CDT BILATERAL FULL FIELD DIGITAL SCREENING MAMMOGRAM WITH TOMOSYNTHESIS Performed on: 10/27/20 Compared to: 01/28/2017 and 06/25/2014 Technique: This study was evaluated with the assistance of Computer-Aided Detection. Breast Tomosynthesis was used in interpretation. Findings: The breasts have scattered areas of fibroglandular density. There is no radiographic evidence of malignancy. IMPRESSION: ACR BI-RADS Category 1: Negative RECOMMENDED FOLLOW-UP: Annual routine screening mammogram The results and recommendations of this examination will be communicated to the patient. Cassie Forbes PA-C IMG MAMMOGRAPHY ORDERABLES Final Result * Pap imaged thin layer screen with HPV - recommended age 30 - 65 years (select HPV order below) (06/27/2018 3:17 PM CDT) PAP TWILA Vasques Report Patient Name: AJIT ORTIZ MR#: [id number] Specimen #: [id number] Collected: 06/27/2018 Received: 06/28/2018 Reported: 06/29/2018 14:16 Ordering Phy(s): IRISH VILLAGOMEZ For improved result formatting, select 'View Enhanced Report Format' under Linked Documents section. SPECIMEN/STAIN PROCESS: Pap imaged thin layer prep screening (Surepath, FocalPoint with guided screening) Pap-Cyto x 1, HPV ordered x 1 SOURCE: Cervical, endocervical Pap imaged thin layer prep screening (Surepath, FocalPoint with guided screening) SPECIMEN ADEQUACY: Satisfactory for evaluation. -Transformation zone component present. CYTOLOGIC INTERPRETATION: Negative for intraepithelial lesion or malignancy Electronically signed out by: ADRIANA Giang (ASCP) CLINICAL HISTORY: LMP: 06/11/2018 Exam Note:: Pelvic Pain, Fibroids, Papanicolaou Test Limitations: Cervical cytology is a screening test with limited sensitivity; regular screening is critical for cancer prevention; Pap tests are primarily effective for the diagnosis/preventi on of squamous cell carcinoma, not adenocarcinomas or other cancers. COLLECTION SITE: Client: [facility] Location: [facility] () The technical component of this testing was completed at the [facility] [facility], with the professional component performed at the [facility], [address] [place] [id number] ([phone]) [facility] Cytologic material (specimen) 06/27/2018 3:17 PM CDT 06/28/2018 9:41 AM CDT Irish Villagomez MD LAB - OPTIME CLINICAL SPECIMEN Final Result COPATH * HPV High Risk Types DNA Cervical (06/27/2018 3:05 PM CDT) HPV Source SurePath 06/27/2018 3:18 PM CDT [facility] HPV 16 DNA Negative NEG^Nega tive 06/30/2018 3:[address] [facility] HPV 18 DNA Negative NEG^Nega tive 06/30/2018 3:[address] [facility] Other HR HPV Negative NEG^Nega tive 06/30/2018 3:[address] [facility] Final Diagnosis This patient's sample is negative for HPV DNA. 06/30/2018 3:[address] [facility] Comment: This test was developed and its performance characteristics determined by the [facility], Molecular Diagnostics Laboratory. It has not been cleared or approved by the FDA. The laboratory is regulated under CLIA as qualified to perform high-complexity testing. This test is used for clinical purposes. It should not be regarded as investigational or for research. (Note) METHODOLOGY: The Carlos Eduardo gita [id number] system uses automated extraction, simultaneous amplification of HPV (L1 region) and beta-globin, followed by real time detection of fluorescent labeled HPV and beta globin using specific oligonucleotide probes . The test specifically identifies types HPV 16 DNA and HPV 18 DNA while concurrently detecting the rest of the high risk types (31, 33, 35, 39, 45, 51, 52, 56, 58, 59, 66 or 68). COMMENTS: This test is not intended for use as a screening device for women under age 30 with normal cervical cytology. Results should be correlated with cytologic and histologic findings. Close clinical followup is recommended. Specimen Description Cervical Cells 06/27/2018 3:[address] [facility] Comment:[id number] Cervical Cells 06/27/2018 3: 05 PM CDT 06/27/2018 3:30 PM CDT us Irish Villagomez MD LAB - BLOOD ORDERABLES Final R esult Performing Organization Address City/State/[facility] Co de Phone Number [facility] [address] [place] [address] [place] [address] [address] [facility] [address] [place] [address] * COLONOSCOPY - HIM SCAN (04/24/2018 12:00 AM CDT) 04/24/2018 us Provider Outside PROCEDURES Final Result * PHQ-9 DEPRESSION SCREENING ORDER (12/27/2017) PHQ9 SCORE 25 Narrative Chelsea Lew - 12/27/2017 [facility] PROGRESS NOTE us Provider Outside OTHER Final Result * (ABNORMAL) Stool: occult blood (01/12/2014 8:30 PM INSTRUCTOR OF EDUCATION) Occult Blood Positive(A ) NEG [facility] Stool specimen (specimen) RECTUM STRUCTURE / Unknown 01/12/2014 8:30 PM INSTRUCTOR OF EDUCATION 01/12/2014 8:39 PM INSTRUCTOR OF EDUCATION Caitlyn Barros PA-C LAB - STOOLS ORDERABLES Final Result [facility] [address] [place], [place] [address] [phone] from Last 3 Months or Most Recently Relevant to Health Maintenance Insurance [employer] Advance Directives For more information, please contact: [phone] * Full Code (Latest Code Status on File) Date Activated Date Inactivated Comments 07/10/2020 3:56 PM 07/11/2020 2:51 PM All basic an d advanced life-sustaining interventions are performed as appropriate Question Answer Comments Code status determined by: Discussion with patie nt/ legal decision maker * Full Code Date Activated Date Inactivated Comments 01/12/2014 5:46 PM 01/16/2014 11:39 PM * Full Code Date Activated Date Inactivated Comments 12/06/2013 6:57 PM 12/08/2013 9:16 PM * Full Code Date Activated Date Inactivated Comments 12/05/2013 8:07 PM 12/06/2013 6:57 PM Care Teams Employment Officer Relationship Specialty Start Date End Date No Ref-Primary, Physician PCP - General 12/30/20 Frida Mercado PA-C [address] [address] Physician Insulation Technician Urology 07/08/23
--- OUTSIDE RECORDS SUMMARY | 2024-06-03 14:18 | XMS_ITS | Encounter Summary ---
Author Organization [place] Address [address] [place] [address]. [place] [address] Care Team Providers Care Electric Organ Assembler Name Role Phone Maru Bolton MD Primary Care Provider Unavailab Cassie Dietz MD Unavailable [phone] Cassie Forbes PA-C Unavailable [phone] Israel Perez MD Unavailable No Ref-Primary, Physician Primary Care Provider Frida Mercado PA-C Unavailable Encounter Details Date Type Department Care Team (Late st Contact Info) Description 07/25/2020 MyC Medical Advice [facility] [place] [address] [place] [address] Jaci Ruano PA-C [address] [facility] [address] [place] [address] Social History Tobacco Use Types Packs/Day Years Used Date Smoking Tobacco: Former Cigarettes 0.3 30 1 981 - 2010 Smokeless Tobacco: Never Quit: 03/24/2007 Comments:hardly smoked Alcohol Use Standard Drinks/Week Comments No 0 (1 standard drink = 0.6 oz pur e alcohol) PHQ-2 Answer Date Recorded PHQ-2 Score 6 05/27/2020 Comments No Sex and Gender Information Value Date Recorded Sex Assigned at Not on file Legal Sex Female 3:34 AM ROUSTABOUT HAND Gender Identity Not on file Sexual Orientation Not on file COVID-19 Exposure Response Date Recorded In the last month, have you been in contact with someone who was confirmed or suspected to have Coronavirus / COVID-19? No / Unsure 07/10/2020 8:58 AM CDT documented as of this encounter Plan of Treatment Not on file documented as of this encounter Visit Diagnoses Not on filedocumented in this encounter Additional Health Concerns Infection Onset Date Last Indicated Resolved Time Rule Out COVID-19 11/02/2023 11/02/2023 11/03/2023 12:14 AM CDT Assessment Noted Time PHQ-9 Depression Total Score: 021 10:00 AM CDT documented as of this encounter Care Teams Electric Organ Assembler Relationship Specialty Start Date End Date Maru Bolton MD PCP - General Family Practice 10/20/17 12/29/20 No Ref-Primary, Physician PCP - General 12/30/20 Cassie Larsen MD SURGICAL CONSULTS, JOANIE [facility] [address] [place] [address] Assigned Surgical Provider 06/08/20 02/05/22 Cassie Forbes PA-C [address] [place] [address] Assigned PCP 07/10/20 08/06/23 Israel Perez MD [address] [place] [address] Assigned Heart and Vascular Provider 08/03/20 07/02/22 Frida Mercado PA-C [address] [place] [address] Physician Maintenance Helper Utility Engineer Urology 07/08/23 documented as of this encounter
--- OUTSIDE RECORDS SUMMARY | 2024-06-03 14:19 | XMS_ITS | Encounter Summary ---
Author Organization [employer] Address [address] [place] [address]. [place] [address] Care Team Providers Care Foundation Assistant Name Role Phone Maru Bolton MD Primary Care Provider Unavailab Maru Coker MD Unavailable Unavailable Jessica Villagomez MD Unavailable [phone] Cassie Larsen MD Unavailable [phone] Cassie Forbes PA-C Unavailable [phone] Israel Perez MD Unavailable No Ref-Primary, Physician Primary Care Provider Frida Mercado PA-C Unavailable [phone] Encounter Details Date Type Department Care Team (Latest Contact Info) Description 06/29/2019 Historic Results Social History Tobacco Use Types Packs/Day Years Used Date Smoking Tobacco: Former Cigarettes 0.3 30 Smokeless Tobacco: Former Quit: 03/24/2007 Comments:hardly smoked Alcohol Use Standard Drinks/Week Comments No 0 (1 standard drink = 0.6 oz pur e alcohol) PHQ-2 Answer Date Recorded PHQ-2 Score 6 02/21/2018 Comments No Sex and Gender Information Value Date Recorded Sex Assigned at Not on file Legal Sex Female 3:34 AM LEADERSHIP DEVELOPMENT CONSULTANT Gender Identity Not on file Sexual Orientation Not on file documented as of this encounter Plan of Treatment Not on file documented as of this encounter Visit Diagnoses Not on filedocumented in this encounter Additional Health Concerns Infection Onset Date Last Indicated Resolved Time Rule Out COVID-19 11/02/2023 11/02/2023 11/03/2023 12:14 AM CDT Assessment Noted Time PHQ-9 Depression Total Score: 24 020 2:23 PM CDT documented as of this encounter Care Teams Foundation Assistant Relationship Specialty Start Date End Date Maru Bolton MD PCP - General Family Practice 10/20/17 12/29/20 No Ref-Primary, Physician PCP - General 12/30/20 Maru Bolton MD Assigned PCP 10/30/17 07/09/20 Jessica Villagomez MD [address] [place], [place] [address] Assigned OBGYN Provider 12/07/1912/28 Cassie Larsen MD SURGICAL CONSULTS, [facility] [address] [employer] [facility] [address] [place], [place] [address] Assigned Surgical Provider 06/08/20 02/05/22 Cassie Forbes PA-C [address] [place] [address] Assigned PCP 07/10/20 08/06/23 Israel Perez MD [address] [place], [place] [address] Assigned Heart and Vascular Provider 08/03/20 07/02/22 Frida Mercado PA-C [address] [place] [address] Physician Dental Floss Packer Urology 07/08/23 documented as of this encounter
--- OUTSIDE RECORDS SUMMARY | 2024-06-03 14:19 | XMS_ITS | Clinical Summary ---
Author Organization [employer] Address [address], [place] [address] Care Team Providers Care Food Safety Field Specialist Name Role Phone Unavailable Primary Care Provider Unavailabl e Source Comments You are receiving this document as you are listed as the primary care provider,follow-up provider, or the patient has been referred to you for consultation.This is in compliance with the Medicare and[facility] EHR Incentive Program,which states Providers who transition their patient to another setting of careor provider of care or refers their patient to another provider of care shouldprovide summary care record for each transition of care or referral. [employer] Allergies Active Allergy Reactions Criticality Noted Date Comments Latex Rash 05/12/2016 Medications VENTOLIN HFA 108 (90 BASE) MCG/ACT inhaler INHALE 1 TO 2 PUFFS PO Q 6 H PRN 0 05/08/2016 Active pregabalin (LYRICA) 50 MG capsule Take 150 mg by mouth two times a day. Active traMADol (ULTRAM) 50 MG tablet Take 50 mg by mouth every 6 hours as needed for Pain. Active oxyCODONE (ROXICODONE) 5 MG immediate release tablet Take 5 mg by mouth every 4 hours as needed for Pain. Active diclofenac (VOLTAREN) 1 % gel Apply 1 g to skin daily. 07/01/2017 Active hydrOXYzine pamoate (VISTARIL) 25 MG capsule Take 25 mg by mouth daily. 05/31/2017 Active tiZANidine (ZANAFLEX) 4 MG tablet Take 4 mg by mouth daily. 05/31/2017 Active OXYCONTIN 20 MG 12 hour release tablet 06/09/2017 Active oxyCODONE (ROXICODONE) 15 MG immediate release tablet 07/05/2017 Acti ve mupirocin calcium (BACTROBAN) 2 % cream 04/26/2017 Active LYRICA 150 MG capsule 06/01/2017 Active Cromolyn Sodium (GASTROCROM) 100 MG/5ML solutionIndicati ons:Ulcerative colitis with complication, unspecified location (HRC),Abdominal pain, generalized,High plasma histamine Take 5-10 mL by mouth 4 times daily before meals and at bedtime. 3600 mL 4 08/10/2017 Active DULoxetine (CYMBALTA) 20 MG capsuleIndicatio ns:Depression with anxiety (HRC),Chronic pain syndrome Take 2 Caps by mouth daily. 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 Luis F Parkinson [facility] [address], [place] [address] - [address] Karla Olivas [facility] [address] [facility] [facility] [facility] [place] [address] Psychiatrist - someone in [place], patient did not like her. Home Medical Services Pharmacy Name: N/A Address: N/A Phone #: N/A Infusion [employer]: N/A Address: N/A Phone #: N/A Line Type: Other: N/A Medication: Name: N/A Dose/Volume: N/A Infusion Time: N/A Frequency: N/A Functional Ability Self Care (bathing, toilet, dressing, moving, eating): frequent assistance, seat riser for shower, has to put on socks and shoes some days. When she wakes up, feels like feet are being smashed. Got sick last week and didn't eat for several days, lots of pain was relieved. Dxed with fibromyalgia, but doesn't believe this really accounts for joint pain. Family and social ability (chores, hobbies, driving,sex,social) : Unable. Doesn't make social plans because she doesn't know how she'll feel each day. Even a trip to the grocery store can put her out for several days. Doctors say she has old knees. Drove up to [place] to buy shoes thru [employer] person told her she sounds like she has EDS, asked to text her this info, learned about Dr. Hackett. Has to wear house shoes all the time to help with plantar fasciitis. Sometimes forgets to put on shoes when she comes in the house, pain is enough to drop her to her knees. Get up and go: walk short distances (1 - 6 blocks) independently and climb 1 flight of steps. Sometimes only gets 5 houses when walking dog before pain is too much. Walks a block to the grocery store, but then has to take time to recover. Split- level house - goes upstairs when she gets home, doesn't go downstairs again. Going down stairs is equally painful, especially in knees. Lift: Can lift 5lbs. Gallon of milk is too heavy. 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 Knee problems started, surgeries, now unable to go back to work. Fell down stairs in February 2012 when she missed a step, broke foot. Fell outside and hurt knee just standing and talking to a neighbor. No flowsheet data found. Medical Equipment/DME: Vendor: [employer] Inspector: N/A Address: N/A Phone #: N/A Mobility devices: a cane, a 4-wheeled walker, a manual wheelchair. Doesn't use these often. TENS device for neck and shoulder, which helps. Assistive Technology Name: N/A Address: N/A Phone #: N/A Device: Knee brace and Other: back brace, orthotics when not wearing [employer] Handicapped Parking? No but would like one. Completed by: N/A Driving modifications: N/A Hasn't driven much in the past four months because of neck pain and medication. Home Care/Home Health Aid/MANAGER FINANCIAL Services: Agency: N/A [employer]: N/A Address: N/A Phone #: N/A Social Supports Spouse/partner and dog, one girlfriend who is really good, another friend who lives up in [place], which is too far. Lots of people don't really understand the severity of pain. Patient doesn't tell many people about medical issues - wants to wait until she has answers. Living [facility] with spouse Financial Needs Work Sponsored Plan [facility] through 's work - $200 individual deductible. RN reviewed medications?: No Patient has always had joint issues - but just worked through it. Had issues with hips since childhood - always been careful about dislocating. Hip slipped out of place one day while stretching buttocks. Dealt with depression off and on - stress is tough on her. Worked 60-80 hours a week, always had 2-3 jobs. Three surgeries on back in 2004. 2008 - slipped on floor at salon, hit head, had to get disc replaced. First miscarriage in February 2010, then 2011 and 2012. Things went downhill after that. Non-stop doctor's visits, surgeries, pain the last four years. 10 surgeries in 3 years. Fibromyalgia diagnosis didn't feel conclusive, Lyrica has helped with FM pain. Both sisters have joint issues, issues with skin swelling after abrasion. 3 cyst surgeries, hernia surgery. 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 Cut soy out of diet, now working it back in. Used to be a go-getter, but has had to cancel all social and work obligations because she can't commit to anything. Used to make jewelry, shop a lot - now watches movies at home, goes to movies, boating, anything that doesn't involve lots of walking. Afraid to tell people about not feeling well because Dad and sister will ridicule her. 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 Immunizations Immunization Administration Dates Next Due Tdap 07/13/2007 Family History Medical History Relation Name Comments Bipolar Disorder Father Coronary Artery Disease Father Hyperlipidemia Father Cataract Mother Depression Mother Glaucoma Mother Hypertension Mother Inflammatory Bowel Disease Mother Migraines Mother Obesity Mother Alcohol Abuse Brother 1 Bipolar Disorder Brother 1 Drug Abuse Brother 1 Eczema Brother 1 Scoliosis Maternal Aunt Cancer, Colon Maternal Grandfather Eczema Maternal Grandfather Cancer, Colon Maternal Grandmother Cataract Maternal Grandmother Inflammatory Bowel Disease Sister 1 Migraines Sister 1 Relation Name Status Comments Father Alive Mother Alive Brother 1 Alive Brother 2 Alive Maternal Aunt Maternal Grandfather (Age 50) Co agueda Cancer Maternal Grandmother (Age 92) He art Complications Paternal Grandfather (Age 80) Co agueda Cancer Paternal Grandmother (Age 30) La bor and Delivery Sister 1 Alive Sister 2 Alive Social History Tobacco Use Types Packs/Day Years Used Date Smoking Tobacco: Former Smokeless Tobacco: Never Alcohol Use Standard Drinks/Week Comments No 0 (1 standard drink = 0.6 oz pur e alcohol) Comments No Sex and Gender Information Value Date Recorded Sex Assigned at Not on file Legal Sex Female 1:31 PM SHERIFF'S SERGEANT Gender Identity Not on file Sexual Orientation Not on file Last Filed Vital Signs Vital Sign Reading Time Taken Comments Blood Pressure 136/97 07/07/2017 4:49 PM CDT Pulse 84 07/07/2017 4:49 PM CDT Temperature 37 C (98.6 F) 07/07/2017 4:40 PM CDT Respiratory Rate 24 05/12/2016 11:22 AM CDT Oxygen Saturation - - Inhaled Oxygen Concentration - - Weight 108.4 kg (239 lb) 05/12/2016 11:22 AM CDT Height 175.3 cm (5' 9) 05/12/2016 11:22 AM CDT Body Mass Index 35.29 05/12/2016 11:22 AM CDT Plan of Treatment Health Maintenance Due Date Last Done Comments Cervical Cancer Screening Due 1968 Colon Cancer Screening Plan Due 1968 Hep C Screening (Preventive Services) 1968 Mammogram 1968 HIV Screening (Preventive Services) 1984 Adult Preventive Visit 1986 HepB Vaccine (1) 11/22/1987 Cholesterol 2013 Pneumococcal Vaccine 50+ Yrs (1 of 1 - PCV) 2018 Zoster/Shingles Vaccine (1 o f 2) 2018 COVID-19 Vaccine (1 - 2023-2 5 season) 2023 Influenza Vaccine (#1) 2023 DTaP/Tdap/Td Vaccine (3 - Tdap) 04/29/2027 04/28/2017, 07/13/2007 HepA Vaccine Aged Out No longer eligi ble based on patient's age to complete this topic Hib Vaccine Aged Out No longer eligi ble based on patient's age to complete this topic IPV (Polio) Vaccine Aged Out No longe r eligible based on patient's age to complete this topic MCV4 Vaccine Aged Out No longer eligi ble based on patient's age to complete this topic Meningococcal B Vaccine Aged Out No l onger eligible based on patient's age to complete this topic Insurance [facility]
--- OUTSIDE RECORDS SUMMARY | 2024-06-03 14:19 | XMS_ITS | Encounter Summary ---
Author Organization [place] Address [address] [place] [address]. [place] [address] Care Team Providers Care Venereal Disease Control Head Name Role Phone Maru Bolton MD Primary Care Provider Unavailab Maru Coker MD Unavailable Unavailable Maru Bolton MD Unavailable Unavailable Jessica Villagomez MD Unavailable [phone] Cassie Larsen MD Unavailable [phone] Cassie Forbes PA-C Unavailable [phone] Israel Perez MD Unavailable No Ref-Primary, Physician Primary Care Provider Frida Mercado PA-C Unavailable Reason for Visit * Reason Onset Date Comments Refill Request 01/04/2018 Encounter Details Date Type Department Care Team (Late st Contact Info) Description 01/04/[address] [address] Maru Bolton MD Refill Request Social History Tobacco Use Types Packs/Day Years Used Date Smoking Tobacco: Former Smokeless Tobacco: Never Alcohol Use Standard Drinks/Week Comments No 0 (1 standard drink = 0.6 oz pur e alcohol) Comments No Sex and Gender Information Value Date Recorded Sex Assigned at Not on file Legal Sex Female 3:34 AM LABORER TIN CAN Gender Identity Not on file Sexual Orientation Not on file documented as of this encounter Miscellaneous Notes * Telephone Encounter - Paula Ontiveros PA-C - 01/04/2018 4:22 PM LABORER TIN CAN Signed in PCP absence. Paula Ontiveros PA-C RER TIN CAN * Telephone Encounter - Elana Phipps RN - 01/04/2018 3:59 PM CST Routing refill request to provider and POD for review/approval because: Failed Blood Pressure Last Written Prescription Date: 10/20/17 Last Fill Quantity: 27, # refills: 0 Last office visit: 12/13/2017 with prescribing provider: Jeannette Bolton for pre-op Future Office Visit: Notes per NOEL 10/20/17: Migraine with aura and without status migrainosus, not intractable: Refilling: - SUMAtriptan (IMITREX) 100 MG tablet; Take 1 tablet (100 mg) by mouth at onset of headache for migraine Return in about 2 months (around 12/20/17) Requested Prescriptions Pending Prescriptions Disp Refills ??? SUMAtriptan (IMITREX) 100 MG tablet 27 tablet 0 Sig: Take 1 tablet (100 mg) by mouth at onset of headache for migraine Serotonin Agonists Failed 01/04/2018 4:07 PM Failed - Blood pressure under 140/90 in past 12 months BP Readings from Last 3 Encounters: 01/04/18 149/88 12/13/17 122/70 10/20/17 138/82 Failed - Serotonin Agonist request needs review. Please review patient's record. If patient has had 8 or more treatments in the past month, please forward to provider. Passed - Recent (12 mo) or future (30 days) visit within the authorizing provider's specialty Patient had office visit in the last 12 months or has a visit in the next 30 days with authorizing provider or within the authorizing provider's specialty. See Patient Info tab in inbasket, or Choose Columns in Meds & Orders section of the refill encounter. Passed - Patient is age 18 or older Passed - No active on record Passed - No positive test in past 12 months Sukhjinder Carrillo RN RER TIN CAN RER TIN CAN * Telephone Encounter - Jerome Pal - 01/04/2018 3:29 PM CST Reason for Call: Other prescription Detailed comments: Pt is requesting a refill for her Sumatriptan. She would like it sent to [facility]. Phone Number Patient can be reached at: Cell number on file: Telephone Information: Best Time: Any time. Can we leave a detailed message on this number? YES Call taken on 01/04/2018 at 3:30 PM by Jerome Pal RER TIN CAN documented in this encounter Plan of Treatment Not on file documented as of this encounter Visit Diagnoses Diagnosis Migraine with aura and without status migrainosus, not intractable Migraine with aura, without mention of intractable migraine without mention of status migrainosus documented in this encounter Additional Health Concerns Infection Onset Date Last Indicated Resolved Time Rule Out COVID-19 11/02/2023 11/02/2023 11/03/2023 12:14 AM CDT Assessment Noted Time PHQ-9 Depression Total Score: 25 018 7:15 AM CDT documented as of this encounter Care Teams Venereal Disease Control Head Relationship Specialty Start Date End Date Maru Bolton MD PCP - General Family Practice 10/20/17 12/29/20 Maru Bolton MD PCP - Assigned PCP 10/30/17 04/18/18 No Ref-Primary, Physician PCP - General 12/30/20 Maru Bolton MD Assigned PCP 10/30/17 07/09/20 Jessica Villagomez MD [address] [place], [place] [address] Assigned OBGYN Provider 12/07/1912/28 Cassie Larsen MD SURGICAL CONSULTS, [facility] [address] [place] [address] Assigned Surgical Provider 06/08/20 02/05/22 Cassie Forbes PA-C [address] [place] [address] Assigned PCP 07/10/20 08/06/23 Israel Perez MD [address] [place] [address] Assigned Heart and Vascular Provider 08/03/20 07/02/22 Frida Mercado PA-C [address] [place] [place] [address] Physician Three Dimensional Art Instructor Urology 07/08/23 documented as of this encounter
--- OUTSIDE RECORDS SUMMARY | 2024-06-03 14:19 | XMS_ITS | Clinical Summary ---
Author Organization [facility] Address [address] [place] [address] Care Team Providers Care Adjunct Business Instructor Name Role Phone Collette Melchor APRN, C.N.P., D.N.P. Primary Ca re Provider Unavailable Source Comments Patient records contain information from all sites at [facility]. For routine questions regarding patient records, call [phone] during business hours, M-F 8:00 AM - 5:00 PM Central Time. Record requests for emergency care only can be directed to [phone] at any time.[facility] Allergies Active Allergy Reactions Criticality Noted Date Comments Citronella Oil Shortness of breath (Reselect Reaction) High 10/07/2016 Escitalopram Other (see comments) 11/28/2015 Sexual side effects Other reaction(s): *Unknown Sexual side effects Hydrocodone Nausea And Vomiting 01/12/2016 Main ingredient in Vicodin - tolerates plain Acetaminophen Hydrocodone-Acetaminop hen Nausea And Vomiting 09/24/2013 nausea Latex Hives (Reselect Reaction),Rash Low 02/25/2012 Added based on information entered during log entry, please review and add reactions, type, and severity as needed Medications tiZANidine (ZANAFLEX) 4 mg tablet 4 mg 2 (two) times a day. 3 Active SUMAtriptan (IMITREX) 100 mg tablet 100 mg as needed for migraine. 3 Active oxyCODONE (ROXICODONE) 15 mg immediate release tablet 15 mg every 4 (four) hours as needed for pain. 3 Active OxyCONTIN 15 mg 12 hr tablet Take 15 mg by mouth 2 (two) times a day. 3 Active pregabalin (LYRICA) 150 mg capsule 150 mg 2 (two) times a day. 3 Active docusate sodium (COLACE) 50 mg capsule Take 300 mg by mouth daily. Active sennosides (senna) 8.6 mg tablet Take 8.6 mg by mouth as needed for constipation . Active linaCLOtide (LINZESS) 145 mcg capsuleIndication s:Irritable Bowel Syndrome With Constipation Take 1 capsule (145 mcg total) by mouth every morning before breakfast. 30 capsule 3 3 Active lidocaine (LIDODERM) 5 % adhesive patch,medicated 4 Active DULoxetine (CYMBALTA) [address] capsule 60 in the morning and 30mg in the PM 90 capsule 11 4 Active nitrofurantoin monohydrate (MACROBID) 100 mg capsule Take 1 capsule (100 mg total) by mouth 2 (two) times a day. 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 Intervertebral Disc Disorder s With Radiculopathy Lumbar Region 10/13/2016 Other Obesity Due To Excess Calories 10/12/2016 06/28/2022 Opioid Moderate Or Severe Us e Disorder (Dependence) Uncomplicated 10/12/2016 Anxiety Disorder Unspecified 09/19/2016 Depression Major Recurrent Moderate 09/19/2016 06/28/2022 Pain Low Back Chronic 09/10/2016 Chronic Pain Syndrome 09/10/2016 Abnormal Coagulation Profile 06/07/2016 Other Specified Abnormal Findings Of Blood Chemi stry 06/07/2016 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 06/28/2022 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 0 06/28/2022 Pain Cervical 12/22/2015 Overview (11/11/2022): Sees [facility] who do injections and prescribe narcotics for her when she needs them Depression Major Recurrent S evere Without Psychotic Features 09/05/2015 06/28/2022 Fibromyalgia 08/12/2015 06/28/2022 Other Specified Symptoms And Signs Involving The Digestive System And Abdomen 05/20/2015 Polycystic Ovary Syndrome 11/02/20102022 Immunizations Immunization Administration Dates Next Due Rho (D) Immune Globulin (IM only) 02/25/2012 Td Preservative Free (TENIVAC, DECAVAC) 04/29/19 18 Td, (Adult) Unspecified 04/28/2017,07/13/2007 Tdap 07/13/2007 Family History Medical History Relation Name Comments Coronary artery disease Father Dillan thompson Hyperlipidemia Father Dillan thompson Hypertension Father Dillan thompson Transient ischemic attack Father Dillan thompson Coronary artery disease Mother [place] thompson Depression Mother [place] thompson Hypertension Mother [place] thompson Obesity Mother [place] thompson Stroke Mother [place] thompson Colon cancer Paternal Grandfather Pauline Both gr andparents had colon cancer Arthritis Paternal Grandmother Aranza cuenca Dementia Paternal Grandmother Aranza cuenca Rheum arthritis Paternal Grandmother Aranza cuenca Relation Name Status Comments Father Dillan thompson Mother [place] thompson Paternal Grandfather Pauline Paternal Grandmother Aranza cuenca Social History Tobacco Use Types Packs/Day Years Used Date Smoking Tobacco: Former Cigarettes 2015 Smokeless Tobacco: Never Tobacco Cessation:Counseling Given: Not Answered Alcohol Use Standard Drinks/Week Comments Not Currently 0 (1 standard drink = 0.6 oz pure alcohol) 2 glasses of wine 1 on Emilia 1 at [facility] Humiliation, Afraid, Rape, and Kick questionnair e Answer Date Recorded Within the last year, have y ou been afraid of your partner or ex-partner? No 06/28/2022 Within the last year, have y ou been humiliated or emotionally abused in other ways by your partner or ex-partner? No Within the last year, have y ou been kicked, hit, slapped, or otherwise physically hurt by your partner or ex-partner? No 06/28/2022 Within the last year, have y ou been raped or forced to have any kind of sexual activity by your partner or ex-partner? No 06/28/2022 Social Connection and Isolat ion Panel [NHANES] Answer Date Recorded In a typical week, how many times do you talk on the phone with family, friends, or neighbors? Twice a week 06/28/2022 How often do you get togethe r with friends or relatives? Once a week 06/28/2022 How often do you attend chur ch or quaker services? More than 4 times per year 06/28/2022 Do you belong to any clubs o r organizations such as quaker groups, unions, fraternal or athletic groups, or school groups? No 06/28/2022 How often do you attend meet ings of the clubs or organizations you belong to? Never 06/28/2022 Are you , , di vorced, , never , or living with a partner? 06/28/2022 AUDIT-C Answer Date Recorded Q1: How often do you have a drink containing alc ohol? Never 06/28/2022 Average Number of Drinks Not on file 023 Frequency of Binge Drinking Not on file 06/14 Overall Financial Resource Strain (CARDIA) Answe r Date Recorded How hard is it for you to pa y for the very basics like food, housing, medical care, and heating? Not very hard 06/28/2022 PHQ-2 Answer Date Recorded PHQ-2 Score 2 06/10/2023 [facility] of Occupat ional Health - Occupational Stress Questionnaire Answer Date Recorded Do you feel stress - tense, restless, nervous, or anxious, or unable to sleep at night because your mind is troubled all the time - these days? To some extent 06/28/2022 Exercise Vital Sign Answer Date Recorde d On average, how many days pe r week do you engage in moderate to strenuous exercise (like a brisk walk)? 0 days 06/28/2022 On average, how many minutes do you engage in exercise at this level? 0 min 06/28/2022 Hunger Vital Sign Answer Date Recorded Within the past 12 months, y ou worried that your food would run out before you got the money to buy more. Never true 06/29/19 23 Within the past 12 months, t he food you bought just didn't last and you didn't have money to get more. Never true 06/28/2022 PRAPARE - Transportation Answer Date Re corded In the past 12 months, has l ack of transportation kept you from medical appointments or from getting medications? No 06/14 In the past 12 months, has l ack of transportation kept you from meetings, work, or from getting things needed for daily living? No 06/28/2022 Housing Stability Vital Sign Answer David e Recorded In the last 12 months, was t here a time when you were not able to pay the mortgage or rent on time? No 06/28/2022 In the last 12 months, how many places have you lived? 1 06/28/2022 In the last 12 months, was t here a time when you did not have a steady place to sleep or slept in a half-way (including now)? No 06/28/2022 Depression Answer Date Recor ded PHQ-9 Total Score (max 27) 8 06/09 Nutrition Answer Date Recorded On average, how many serving s of fruits and vegetables do you eat per day (serving size is equal to 1 cup or approximately the size of a tennis ball)? 2-3 06/28/2022 Dental Answer Date Recorded Dental: Regular Dentist Yes 06/29/19 Employment Answer Date Recorded Employment status Permanently disabled Education Answer Date Recorded What is the highest level of school you have completed or the highest degree you have received? Associate degree: occupational, technical, or vocational program 06/28/2022 Comments No Sex and Gender Information Value Date Recorded Sex Assigned at Female 06/28/2022 1:29 PM CDT Legal Sex Female 1:17 PM CDT Gender Identity Female 06/28/2022 1:29 PM CDT Sexual Orientation Straight 06/28/2022 1: 29 PM CDT Last Filed Vital Signs Vital Sign Reading Time Taken Comments Blood Pressure 120/82 06/10/2023 1:58 PM CDT Pulse 94 06/10/2023 1:58 PM CDT Temperature 36.2 C (97.2 F) 06/10/2023 1:52 PM CDT Respiratory Rate 18 06/28/2022 3:58 PM CDT Oxygen Saturation 96% 09/22/2022 3:35 PM CDT Inhaled Oxygen Concentration - - Weight 106 kg (232 lb 12.9 oz) 06/10/2023 1:52 P M CDT Height 175.3 cm (5' 9.02) 11/11/2022 1:51 PM CD T Body Mass Index 34.36 11/11/2022 1:51 PM CDT Plan of Treatment Health Maintenance Due Date Last Done Comments CT Colonography 1968 Cologuard 1968 Colonoscopy 1968 Colorectal Cancer Surveillance 1968 Hepatitis C Screening 1968 Lung Cancer Screening 1968 Hepatitis B Vaccines (1 of 3 - 19+ 3-dose series) 11/22/1987 Pneumococcal vaccine (50+ years) (1 of 1 - PCV) 2018 Zoster Vaccines (1 of 2) 2018 Cervical/Vaginal Cancer Screening 06/27/2021 06/27/2018, 02/14/2018 (Performed elsewhere) Controlled Substance Agreement 06/28/2022 Controlled Substance Monitoring (UDS) 06/28/2022 Opioid Risk Tool (ORT) 06/28/2022 PEG assessment for Opioid therapy 06/28/2022 Opioid Use Disorder (OUD) Screening 06/29/2023 Mammogram 09/03/2023 09/02/2022, 10/15, 10/27/2020, Additional history exists Depression Monitoring (PHQ-9) 10/10/2023 06/10/2023 COVID-19 Vaccine ( season) 2023 Influenza Vaccine (#1) 2023 Depression Monitoring (PHQ-9 for quality tracking) 02/15/2024 Controlled Substance Monitoring (PHQ-9) 06/09/2024 06/10/2023 Generalized Anxiety (DANY-7) 06/09/2024 06/10/2023 Fasting Glucose for Diabetes Screening 06/09/2026 06/10/2023, 06/28/2022, 06/28/2022, Additional history exists DTaP,Tdap,and Td Vaccines (5 - Td or Tdap) 04/29/2027 04/28/2017, 04/28/2017, 07/13/2007, Additional history exists Lipid (Cholesterol) Screening 06/29/2027 06/28/2022, 12/30/2020, 06/06/2020, Additional history exists IPV Vaccines Aged Out No longer eligi ble based on patient's age to complete this topic Procedures Procedure Name Priority Date/Time Associated Diagnosis Comments COMPREHENSIVE METABOLIC PANEL, S/P Routine 06/10/2023 2:44 PM CDT Pain Left Upper Quadrant BI BREAST DIAGNOSTIC BILATERAL WITH TOMOSYNTHESIS RAD - Routine (most inpatients and all outpatients) 09/02/2022 2:18 PM CDT Pain Breast LIPID PANEL, S Routine 06/28/2022 4:38 PM CDT Screening Lipid from Last 3 Months or Most Recently Relevant to Health Maintenance Results * (ABNORMAL) Comprehensive Metabolic Panel (06/10/2023 2:44 PM CDT) Potassium, P 4.7 3.6 - 5.2 mmol/L 06/10/2023 3:03 PM CDT CNFL Sodium, P 140 135 - 145 mmol/L 06/10/2023 3:03 PM CDT CNFL Chloride, P 104 98 - 107 mmol/L 06/10/2023 3:03 PM CDT CNFL Bicarbonate, P 28 22 - 29 mmol/L 06/10/2023 3:03 PM CDT CNFL Anion Gap, P 8 7 - 15 06/10/2023 3:03 PM CDT CNFL BUN (Blood Urea Nitrogen), P 23(H) 6 - 21 mg/dL 06/10/2023 3:03 PM CDT CNFL Creatinine 0.88 0.59 - 1.04 mg/dL 06/10/2023 3:03 PM CDT CNFL Estimated GFR (eGFR) 78 >=60 mL/min/BS A 06/10/2023 3:03 PM CDT CNFL Comment: Estimated GFR calculated using the 2020 CKD_EPI creatinine equation. Calcium, Total, P 9.6 8.6 - 10.0 mg/dL 06/10/2023 3:03 PM CDT CNFL Glucose, P 98 70 - 140 mg/dL 06/10/2023 3:03 PM CDT CNFL Protein, Total, P 6.9 6.3 - 7.9 g/dL 06/10/2023 3:03 PM CDT CNFL Albumin, P 4.2 3.5 - 5.0 g/dL 06/10/2023 3:03 PM CDT CNFL Aspartate Aminotransferase (AST), P 28 8 - 43 U/L 06/10/2023 3:03 PM CDT CNFL Alkaline Phosphatase, P 111(H) 35 - 104 U/L 06/10/2023 3:03 PM CDT CNFL Alanine Aminotransferase (ALT), P 25 7 - 45 U/L 06/10/2023 3:03 PM CDT CNFL Bilirubin, Total, P 0.3 0.0 - 1.2 mg/dL 06/10/2023 3:03 PM CDT CNFL Blood (Blood, Venous) 06/10/2023 2:44 PM CDT 06/10/2023 2:44 PM CDT us Olga Richards APRN.N.P., Yamileth.N.P. LAB BLOOD A DD-ON Final Result [facility] [address] [place] [id number], [facility] CNFL [facility] in [address] [address] * BI Breast Diagnostic Bilateral with Tomosynthesis (09/02/2022 2:18 PM CDT) Anatomical Region Laterality Modality Breast, Breast Imaging RST L OS, Breast Imaging ARZ LOS, Breast Imaging FLA LOS Bilateral Mammography 09/02/2022 3:13 PM CDT Impressions 09/02/2022 3:15 PM CDT No mammographic or sonographic findings of malignancy. RECOMMENDATION: Annual Screening Mammogram ASSESSMENT: BI-RADS: 2: Benign. Narrative 09/02/2022 3:15 PM CDT EXAM: BI BREAST DIAGNOSTIC BILATERAL WITH TOMOSYNTHESIS, BI ULTRASOUND BREAST FOCUSED LEFT INDICATION: Left breast bruising and discomfort COMPARISON: Prior exam(s) were available and reviewed for comparison. DENSITY: b. There are scattered areas of fibroglandular density. FINDINGS: Multiple bilateral circumscribed masses. Multiplicity and bilaterality suggests benign findings. An ultrasound was performed, scanning the outer left breast in the region of prior bruising and discomfort. No suspicious sonographic findings. Numerous benign-appearing cysts are identified. Procedure Note Macario Delaney M.D. - 09/02/2022 EXAM: BI BREAST DIAGNOSTIC BILATERAL WITH TOMOSYNTHESIS, BI ULTRASOUNDBREAST FOCUSED LEFT INDICATION: Left breast bruising and discomfort COMPARISON: Prior exam(s) were available and reviewed for comparison. DENSITY: b. There are scattered areas of fibroglandular density. FINDINGS: Multiple bilateral circumscribed masses. Multiplicity andbilaterality suggests benign findings. An ultrasound was performed, scanning the outer left breast inthe region of prior bruising and discomfort. No suspicious sonographic findings. Numerousbenign- appearing cysts are identified. IMPRESSION: No mammographic or sonographic findings of malignancy. RECOMMENDATION: Annual Screening Mammogram ASSESSMENT: BI-RADS: 2: Benign. us Collette Machado Ruiz MCDANIEL C.N.P., D.N.P. [facility] BI PROC EDURES Final Result * (ABNORMAL) Lipid Panel (06/28/2022 4:38 PM CDT) Triglycerides 78 mg/dL 06/28/2022 5:02 PM CDT CNFL Comment: ----REFERENCE VALUE---- Normal: <150 mg/dL Borderline High: 150-199 mg/dL High: 200-499 mg/dL Very High: > or =500 mg/dL Cholesterol, Total 219(H) mg/dL 2022 5:02 PM CDT CNFL Comment: ----REFERENCE VALUE---- Desirable: < 200 mg/dL Borderline High: 200 - 239 mg/dL High: > or = 240 mg/dL Cholesterol, LDL, Calculated 125 mg/dL 06/28/2022 5:02 PM CDT CNFL Comment: ----REFERENCE VALUE---- Desirable: <100 mg/dL Above Desirable: 100-129 mg/dL Borderline High: 130-159 mg/dL High: 160-189 mg/dL Very High: >=190 mg/dL ----ADDITIONAL INFORMATION---- LDL cholesterol calculated using the Rodriguez/NIH equation. Cholesterol, HDL 80 >=50 mg/dL 06/29/19 5:02 PM CDT CNFL Cholesterol, Non-HDL, Calculated 139 mg/dL 06/28/2022 5:02 PM CDT CNFL Comment: ----REFERENCE VALUE---- Desirable: <130 mg/dL Above Desirable: 130-159 mg/dL Borderline High: 160-189 mg/dL High: 190-219 mg/dL Very High: > or =220 mg/dL Fasting (8 HR or more) Yes 06/28/2022 4:41 PM CDT CNFL Blood (Blood, Venous) 06/28/2022 4:38 PM CDT 06/28/2022 4:41 PM CDT Zoya Richards APRNNOmero., D.N.P. LAB BLOOD A DD-ON Final Result [facility] [address] [place] [id number], [facility] [address] [address] from Last 3 Months or Most Recently Relevant to Health Maintenance Insurance [facility] Care Teams Adjunct Business Instructor Relationship Specialty Start Date End Date Collette Melchor APRN, C.N.Megan, D.N.P. PCP - General Family Medicine 06/21/22
--- OUTSIDE RECORDS SUMMARY | 2024-06-03 14:19 | XMS_ITS | Encounter Summary ---
[facility] Address [address] [place] [address] Care Team Providers Care Pharmacy Tech Customer Service Name Role Phone Tricia Hackett MD Primary Care Provider [phone] Encounter Details Date Type Department Care Team (Late st Contact Info) Description 07/27/2017 Scanned History External to Transferred Record, Provider [facility] Social History Tobacco Use Types Packs/Day Years Used Date Smoking Tobacco: Former Smokeless Tobacco: Never Alcohol Use Standard Drinks/Week Comments No 0 (1 standard drink = 0.6 oz pur e alcohol) Comments No Sex and Gender Information Value Date Recorded Sex Assigned at Not on file Legal Sex Female 1:31 PM REHABILITATION SERVICES MANAGER Gender Identity Not on file Sexual Orientation Not on file documented as of this encounter Plan of Treatment Not on file documented as of this encounter Visit Diagnoses Not on filedocumented in this encounter Care Teams Pharmacy Tech Customer Service Relationship Specialty Start Date End Date Tricia Hackett MD [address] [facility] [place] [address] PCP - General Family Practice 06/04/16 05/22/19 documented as of this encounter
[2024-06-03] MEDS: ONDANSETRON 2 MG/ML inj 4 MG IVP (14:29)
[2024-06-03 14:31] LABS: Chloride* 102 mmol/L (96-114)
[2024-06-03 14:32] LABS: Albumin* 4.5 g/dL (3.3-5.0); Sodium* 133 mmol/L (135-149)
[2024-06-03 14:35] LABS: Alanine Aminotransferase* 31 U/L (4-35); Alkaline Phosphatase* 113 U/L (40-150); Anion Gap 12 mEq/L (7-15); Aspartate Amino Transferase* 37 U/L (12-35); Bilirubin Total* 1.2 mg/dL (0.1-1.5); Blood Urea Nitrogen* 24 mg/dL (7-30); Calcium* 9.7 mg/dL (8.4-10.6); Carbon Dioxide* 19 mmol/L (20-32); Creatinine* 0.8 mg/dL (0.5-1.5); Est. Creatinine Clearance* 85.92; Estimated Glomerular Filt Rate 87 ml/min; Glucose* 89 mg/dL (60-115); Total Protein* 7.4 g/dL (6.0-8.3)
[2024-06-03 14:38] LABS: C Reactive Protein* 0.6 mg/dL (0.5-1.0)
[2024-06-03] MEDS: LORazepam 2 MG/ML inj 1 MG IVP (14:44)
[2024-06-03] MEDS: 0.9 % SODIUM CHLORIDE 1000 ml 1,000 ML IV ×2 (14:50→16:36)
[2024-06-03 15:05] VITALS: PULSE 83; O2SAT 96
[2024-06-03 15:06] VITALS: BP 154/70; PULSE 76; RESP 20; O2SAT 96
[2024-06-03 16:09] LABS: Appearance Urine Clear (Clear); Bilirubin Urine 1+ (Negative); Blood Urine Trace-intact (Negative); Glucose Urine Negative (Negative); Ketones Urine 4+ (Negative); Leukocyte Esterase Urine Negative (Negative); Nitrite Urine Positive (Negative); Protein Urine Negative (Negative); Specific Gravity Urine 1.015 (1.000-1.030); Urobilinogen Urine 0.2 (0.2-1.0); pH Urine 5.5 (5.0-8.5)
[2024-06-03 16:12] LABS: Color Urine Yellow (Yellow)
[2024-06-03 16:23] LABS: Bacteria Urine Few; Squamous Epithelial Cell Urine Few (None-Few)
[2024-06-03] MEDS: cefTRIAXone 1 GM in 0.9 % SODIUM CHLORIDE Mini-bag 100 ML IVPB (16:37)
[2024-06-03 16:39] VITALS: BP 134/62; PULSE 91; RESP 16; O2SAT 94
== END 2024-06-03 17:47 | disposition home or self-care (01) ==
PROVIDERS: Emergency Provider Family Medicine
DX: N39.0 Urinary tract infection, site not specified (principal)
CPT/HCPCS: 36415; 74177; 80053; 81001; 83605; 85025; 86140; 87086; 96365; 96375; 99284; 99285; J0696; J2060; J2405; J7030; Q9967